=== PATIENT | female | born 1955 | race Caucasian/White ===

== ENCOUNTER → 2024-02-08 13:46 | Outpatient (REF) | payer OTHER, SELFPAY | LOC: WDC 13:46 | PROVIDERS: ATTENDING PHYSICIAN Obstetrics & Gynecology Gynecology; FAMILY PHYSICIAN Internal Medicine | DX: Z78.0 Asymptomatic menopausal state (principal); Z12.31 Encounter for screening mammogram for malignant neoplasm of breast | CPT/HCPCS: 77063; 77067; 77080 ==

== ENCOUNTER → 2024-10-15 12:30 | Outpatient (REF) | payer OTHER, SELFPAY ==
[2024-10-15 09:05] LABS: % Basophils 0.3 % (0-2); % Eosinophils 1.3 % (0-6); % Lymphocytes 37.9 % (20.5-51.1); % Monocytes 8.9 % (1.7-9.3); % Neutrophils 51.6 % (42.2-75.2); Absolute Eosinophils 0.1 10^3/uL (0-0.7); Absolute Lymphocytes 1.5 10^3/uL (1.2-3.4); Absolute Monocytes 0.4 10^3/uL (0.1-0.6); Hematocrit 31.1 % (37.0-47.0); Hemoglobin 9.9 g/dL (12.0-16.0); Mean Corp Hgb Conc. 31.8 g/dL (33.0-37.0); Mean Corpuscular Hgb 23.8 pg (27.0-31.0); Mean Corpuscular Volume 74.8 fL (81.0-99.0); Mean Platelet Volume 8.8 fL (7.4-10.4); Platelet Count 299 10^3/uL (130-400); Red Blood Cell Count 4.16 10^6/uL (4.20-5.40); Red Cell Dist. Width 14.1 % (11.5-14.5); White Blood Cell Count 3.9 10^3/uL (4.8-10.8)
== END ==
LOC: OIDL 12:30
PROVIDERS: ATTENDING PHYSICIAN Internal Medicine Hematology & Oncology
DX: D50.9 Iron deficiency anemia, unspecified (principal)
CPT/HCPCS: 85025

== ENCOUNTER 2024-10-24 06:21 | Day surgery (SDC) | payer OTHER, SELFPAY | END 2024-10-24 12:07 | disposition home or self-care (01) | LOC: GI 06:21 | PROVIDERS: ATTENDING PHYSICIAN Internal Medicine Gastroenterology | DX: D50.9 Iron deficiency anemia, unspecified (principal); K57.30 Diverticulosis of large intestine without perforation or abscess without bleeding; K64.8 Other hemorrhoids; K31.7 Polyp of stomach and duodenum; K31.89 Other diseases of stomach and duodenum; D12.0 Benign neoplasm of cecum; D12.3 Benign neoplasm of transverse colon | CPT/HCPCS: 45385; 45380; 43239; 88305; 88342 ==

== ENCOUNTER → 2024-10-30 16:01 | Outpatient (REF) | payer OTHER, SELFPAY ==
[2024-10-30 14:05] LABS: % Basophils 0.2 % (0-2); % Eosinophils 0.4 % (0-6); % Lymphocytes 24.3 % (20.5-51.1); % Monocytes 7.8 % (1.7-9.3); % Neutrophils 67.3 % (42.2-75.2); Absolute Lymphocytes 1.3 10^3/uL (1.2-3.4); Absolute Monocytes 0.4 10^3/uL (0.1-0.6); Absolute Neutrophils 3.6 10^3/uL (1.4-6.5); Hematocrit 34.7 % (37.0-47.0); Hemoglobin 10.8 g/dL (12.0-16.0); Mean Corp Hgb Conc. 31.1 g/dL (33.0-37.0); Mean Corpuscular Hgb 24.4 pg (27.0-31.0); Mean Corpuscular Volume 78.3 fL (81.0-99.0); Mean Platelet Volume 9.4 fL (7.4-10.4); Platelet Count 305 10^3/uL (130-400); Red Blood Cell Count 4.43 10^6/uL (4.20-5.40); White Blood Cell Count 5.4 10^3/uL (4.8-10.8)
== END ==
LOC: OIDL 16:01
PROVIDERS: ATTENDING PHYSICIAN Internal Medicine Hematology & Oncology
DX: D50.9 Iron deficiency anemia, unspecified (principal)
CPT/HCPCS: 85025

== ENCOUNTER → 2024-11-16 11:34 | Outpatient (REF) | payer OTHER, SELFPAY ==
[2024-11-16 11:38] LABS: % Basophils 0.4 % (0-2); % Eosinophils 0.4 % (0-6); % Lymphocytes 28.8 % (20.5-51.1); % Neutrophils 63.4 % (42.2-75.2); Absolute Lymphocytes 1.6 10^3/uL (1.2-3.4); Absolute Monocytes 0.4 10^3/uL (0.1-0.6); Absolute Neutrophils 3.6 10^3/uL (1.4-6.5); Hemoglobin 11.8 g/dL (12.0-16.0); Mean Corp Hgb Conc. 32.8 g/dL (33.0-37.0); Mean Corpuscular Hgb 25.5 pg (27.0-31.0); Mean Corpuscular Volume 77.8 fL (81.0-99.0); Mean Platelet Volume 8.6 fL (7.4-10.4); Platelet Count 254 10^3/uL (130-400); Red Blood Cell Count 4.63 10^6/uL (4.20-5.40); Red Cell Dist. Width 18.4 % (11.5-14.5); White Blood Cell Count 5.6 10^3/uL (4.8-10.8)
== END ==
LOC: OIDL 11:34
PROVIDERS: ATTENDING PHYSICIAN Internal Medicine Hematology & Oncology
DX: D50.9 Iron deficiency anemia, unspecified (principal)
CPT/HCPCS: 85025

== ENCOUNTER 2024-12-04 06:27 | Day surgery (SDC) | payer OTHER, SELFPAY ==
[2024-11-19 11:16] LABS: Hematocrit 34.6 % (37.0-47.0); Hemoglobin 11.2 g/dL (12.0-16.0); Mean Corp Hgb Conc. 32.4 g/dL (33.0-37.0); Mean Corpuscular Hgb 25.8 pg (27.0-31.0); Mean Corpuscular Volume 79.7 fL (81.0-99.0); Mean Platelet Volume 9.6 fL (7.4-10.4); Platelet Count 223 10^3/uL (130-400); Red Blood Cell Count 4.34 10^6/uL (4.20-5.40); White Blood Cell Count 4.5 10^3/uL (4.8-10.8)
[2024-11-19 14:17] VITALS: BMI 23.5
[2024-12-04] VITALS (16 sets, daily range): BP systolic 94–145; BP diastolic 41–70; BMI 23.5; BMI 26.1
[2024-12-04] MEDS: Pyridium 200 MG PO (10:09)
[2024-12-04] MEDS: HEPARIN 5000 UNITS SC (10:09)
[2024-12-04] MEDS: NORMOSOL-R/PLASMALYTE-A 1000 IV ×2 (10:10→21:50)
[2024-12-04] MEDS: SUBLIMAZE 25 MCG IV ×2 (14:46→15:09)
[2024-12-04] MEDS: COMPAZINE 5 MG IV (16:15)
--- NOTE | 2024-12-04 20:00 | PTCARENOTE ---
Brought pt back to PACU. Pt's went home, awaiting to find out her room. Report given to Evelyn in PACU. Pt comfortable, sipping on water and eating crackers. Pad was moderately full at last change at 1940. No clots.
[2024-12-04 20:27] LABS: Hematocrit 34.5 % (37.0-47.0); Hemoglobin 11.3 g/dL (12.0-16.0)
--- NOTE | 2024-12-04 21:10 | PTCARENOTE ---
Pt admitted to 2128 from PACU at this time, aaox3, no c/o pain offered, able to transfer self from stretcher into bed. Oriented to room and call light. 5 abd midsection lap sites intact and well approximated. Min amount of blood noted on the pad,
however moderate amount of blood mixed with large clots was noted when pt voided. Pt c/o nausea x1, zofran given with + effect, tolerating oral fluids well. Normosol infusing as per order.
[2024-12-04] MEDS: TORADOL 15 MG IV (21:51)
[2024-12-04] MEDS: COLACE 100 MG PO (21:51)
[2024-12-04] MEDS: RESTASIS 0.05% OPHTHALMIC EMULSION 1 DROPS BOTH EYES (21:51)
[2024-12-04] MEDS: ZOFRAN 4 MG IV (22:39)
[2024-12-04] MEDS: MYLICON 80 MG PO (22:39)
[2024-12-05 00:14] VITALS: BP 120/60
[2024-12-05] MEDS: TORADOL 15 MG IV ×2 (02:59→08:36)
[2024-12-05 03:37] VITALS: BP 94/63
[2024-12-05 06:45] LABS: Hematocrit 32.4 % (37.0-47.0); Hemoglobin 10.7 g/dL (12.0-16.0); Mean Corpuscular Volume 78.8 fL (81.0-99.0); Mean Platelet Volume 9.1 fL (7.4-10.4); Platelet Count 220 10^3/uL (130-400); Red Blood Cell Count 4.11 10^6/uL (4.20-5.40); Red Cell Dist. Width 20.9 % (11.5-14.5); White Blood Cell Count 8.2 10^3/uL (4.8-10.8)
[2024-12-05 06:55] LABS: Blood Urea Nitrogen 12 mg/dl (7-17); Carbon Dioxide 26 mmol/L (22-30); Chloride 101 mmol/L (98-107); Estimated Creatinine Clearance 58 ml/min; Sodium 137 mmol/L (135-145)
[2024-12-05 07:24] VITALS: BP 113/59
--- NOTE | 2024-12-05 07:55 | W.PN.GYN ---
Today's Communication / Plan
-
void, ambulate, discharge after breakfast
Physician Note
-
69yoF PM pelvic organ prolapase, s/p supracervical hysterectomy, BSO, sacrocolpopexy and single incision sling and posterior colporrhaphy on 12/04/24. Patient was admitted overnight due to vaginal bleeding/clots noted.
Patient was evaluated on AM rounds. She reports the vaginal bleeding had improved overnight and went through only one pad. Her munoz catheter was removed in the early AM and she voided multiple times.She had walked with assistance without
difficulty. She reports she had tolerated drinking fluids and is pending to eat breakfast. She notes her incisional pain is well controlled.
O:
Vital Signs
Temp Pulse Resp BP Pulse Ox
98.2 F 78 16 113/59 98
12/05/24 07:24 12/05/24 07:24 12/05/24 07:24 12/05/24 07:24 12/05/24 07:24
Intake and Output
12/04/24 12/05/24 12/06/24
06:59 06:59 06:59
Intake Total 890 / 890
Output Total 225 / 225
Balance 665 / 665
Intake:
Oral fluids 240 / 240
IV fluids (Total) 650 / 650
normosol 100 / 100
Output:
Urine, Munoz 225 / 225
Other:
Number of approximated MODERATE 2
amounts of urine
Laboratory Results
12/05/24 05:50
12/05/24 05:50
GA: Well appearing female in NAD
HEENT: normocephalic, EOMI
Pulm: unlabored breathing on RA
Abd: soft, nondistended, mild incisional tenderness, incisions intact and covered with dermabond
: vaginal pad with minimal dried blood
Ext: SCDs on, no LE edema
A/P
69yoF PMH pelvic organ prolapse, s/p supracervical hysterectomy, BSO, sacrocolpopexy and single incision sling and posterior colporrhaphy on 12/04/24. Vaginal bleeding improved. Vitals and H/H stable.
- Monitor vitals and Is and Os
- Monitor vaginal bleeding
- Stop IV fluids
- Regular diet
- Continue home medications
- Tylenol prn for mild pain and dilaudid for severe pain
- OOB with assistance
- DVT prophylaxis with SCDs and Lovenox
- Likely discharge home in early afternoon
- Patient will followup with urogynecology office in 2 weeks. Appointment scheduled
[2024-12-05] MEDS: CLARITIN 10 MG PO (08:36)
[2024-12-05] MEDS: PROTONIX 40 MG PO (08:36)
[2024-12-05] MEDS: COLACE 100 MG PO (08:36)
[2024-12-05] MEDS: RESTASIS 0.05% OPHTHALMIC EMULSION 1 DROPS BOTH EYES (08:36)
[2024-12-05] MEDS: NORMOSOL-R/PLASMALYTE-A IV (09:07)
[2024-12-05 11:10] VITALS: BP 124/60
--- NOTE | 2024-12-05 17:04 | CM ---
Patient chart reviewed
PLAN: home, no needs
family to transport
== END 2024-12-05 11:16 | disposition home or self-care (01) ==
LOC: SDS 06:27
PROVIDERS: ATTENDING PHYSICIAN Obstetrics & Gynecology; FAMILY PHYSICIAN Internal Medicine
DX: N81.11 Cystocele, midline (principal); N95.8 Other specified menopausal and perimenopausal disorders; N39.3 Stress incontinence (female) (male); N80.03 Adenomyosis of the uterus; D25.9 Leiomyoma of uterus, unspecified; N83.8 Other noninflammatory disorders of ovary, fallopian tube and broad ligament
CPT/HCPCS: 57425; 58542; 57250; 57288; 88305; 36415; 80051; 82565; 84520; 85014; 85018; 85027; 86850; 86900; 86901; 93005; C1713; C1763; C1771

== ENCOUNTER → 2025-02-20 15:22 | Outpatient (REF) | payer OTHER, SELFPAY | LOC: WDC 15:22 | PROVIDERS: ATTENDING PHYSICIAN Obstetrics & Gynecology Gynecology; FAMILY PHYSICIAN Internal Medicine | DX: Z12.31 Encounter for screening mammogram for malignant neoplasm of breast (principal) | CPT/HCPCS: 77063; 77067 ==